=== PATIENT | female | born 1985 | race Caucasian/White ===

== ENCOUNTER 2019-09-06 14:16 | Emergency (ER) | payer OTHER, SELFPAY ==
--- NOTE | 2019-09-06 13:52 | ECG_ITS ---
Measurements Intervals [place] Rate: 77 P: 39 KS: 131 QRS: -62 QRSD: 86 T: 2 QT: 371 QTc: 421 Interpretive Statements SINUS RHYTHM LOW QRS VOLTAGE IN PRECORDIAL LEADS BORDERLINE ST-T WAVE ABNORMALITY- ANTEROLAT/INF LEADS BASELINE ARTIFACT- I, II, AVR, V4-V6 BORDERLINE ECG Electronically Signed On 09-06-2019 14:48:28 CDT by Suleman Richards D.O.
[2019-09-06 14:22] VITALS: BP 134/73; PULSE 87; RESP 16; TEMP 37.1; O2SAT 99
--- NOTE | 2019-09-06 14:54 | ED.DIZZY ---
HPI - Dizziness General Chief Complaint: Dizziness Stated Complaint: Dizzy Time Seen by Provider: 09/06/19 14:20 Source: patient Mode of arrival: ambulatory Limitations: no limitations History of Present Illness HPI Narrative: Patient is a 34-year-old female who presents to the emergency department with complaint of dizziness. Patient is G3, who is currently approximately 16 weeks gestation. She has been having issues with nausea during her . She has been taking Zofran once daily without much relief in symptoms. Patient has tried smoking marijuana to help alleviate her symptoms without any relief. Patient denies any diarrhea and has reported some constipation for which she has been taking stool softeners regularly and had been using MiraLAX and taken suppositories when her symptoms were worse. Patient is trying to drink as much water as she can, but reports a lot of heartburn and acid reflux. Patient has not been able to eat much. Patient had a syncopal episode a couple of weeks ago and today after going to the bathroom felt dizzy and near syncopal again. No syncope today. MD elicited complaint: dizziness and near syncope Description: near-syncope Associated symptoms: nausea Related Data Home Medications Medication Instructions Recorded Confirmed Tums E-X 09/06/19 docusate sodium [Stool Softener] 100 mg PO DAILY 09/06/19 ondansetron HCl [Zofran] 4 mg PO Q6H PRN 09/06/19 [id number] fum-folic [id number] pkg PO DAILY 09/06/19 [Daily ] Allergies Allergy/AdvReac Type Severity Reaction Status Date / Time morphine AdvReac Unknown Other Verified 09/06/19 14:32 Penicillins AdvReac Unknown Other Verified 09/06/19 14:32 Review of Systems Review of Systems: All systems reviewed & are unremarkable except as noted in HPI and below Constitutional: Constitutional: Denies fever(s) Respiratory: Respiratory: Denies cough and Denies dyspnea Gastrointestinal: Gastrointestinal: Reports abdominal pain, Reports constipation, Reports heartburn and Reports nausea Genitourinary: Genitourinary: Denies hematuria, Denies nocturia, Denies dysuria and Reports flank pain PMFSH Past Medical History Medical History (Updated 09/06/19 @ 18:08 by Gilda Maldonado MD) No significant past medical history Surgical History Surgical History (Updated 09/06/19 @ 14:58 by Gilda Maldonado MD) No significant past surgical history Social History Social History (Updated 09/06/19 @ 14:58 by Gilda Maldonado MD) Smoking status: Former smoker Alcohol intake: former Substance use type: marijuana Gender identity (if verbalized by the patient): Female Exam Const: General: cooperative, no acute distress and alert Nutritional Appearance: well nourished Orientation/consciousness: patient oriented x3 Limitations: no limitations HENMT: Mouth: Yes lip normal and Yes moist mucous membranes Resp: Effort & Inspection: normal respiratory effort Auscultation: clear to auscultation bilaterally Cardio: Rate: regular rate Rhythm: regular rhythm GI: GI Palp: Yes Soft to palpation and Yes Tenderness to palpation present (GI) (Mild diffuse) Auscultation: normal bowel sounds : General: Yes no CVA tenderness Skin: General skin exam: normal color Neuro: General: patient oriented x3 Cognition (Neuro): normal cognition Speech: normal speech Extrem: General: normal to inspection, full ROM and no clubbing, cyanosis or edema Psych: Mental Status: mental status grossly normal Affect: normal affect Attitude: cooperative Course Course Emergency Course: Patient given liter of IV fluid and Reglan and reports improvement in symptoms. She is eating jose crackers and drinking a clear soda. Patient is appropriate for discharge and outpatient management. Will prescribe Reglan and Pepcid for management of her acid reflux and nausea symptoms. Advised close [employer] follow-up. Patient also counseled to stop ma
[2019-09-06] MEDS: METOCLOPRAMIDE HCL INJ 10 MG/2 ML VIAL IV PUSH (15:19)
[2019-09-06] MEDS: LACTATED RINGERS 1,000 ML 999 ML IV CONT (15:19)
[2019-09-06 15:20] VITALS: BP 141/76; PULSE 89
[2019-09-06 15:22] VITALS: BP 142/99; PULSE 93
[2019-09-06 15:23] VITALS: BP 134/88; PULSE 100
[2019-09-06 15:35] LABS: Basophils Percent Auto 0.2 % (0.2-1.2); Eosinophils Absolute Auto 0.1 K/mm3 (0-0.3); Hematocrit 34.3 % (37.0-47.0); Hemoglobin 11.5 g/dL (12.0-15.0); Immature Granulocyte Absolute 0.03 K/mm3 (0.00-0.031); Immature Granulocyte Percent A 0.3 % (0-0.5); Lymphocytes Absolute Auto 1.58 K/mm3 (0.9-3.2); Lymphocytes Percent Auto 17.4 % (18.3-44.2); Mean Corpuscular HGB Conc 33.5 g/dl (32-36); Mean Corpuscular Hemoglobin 29.9 pg (26-34); Mean Corpuscular Volume 89.1 fl (80-100); Mean Platelet Volume 10.2 fl (7.4-10.4); Monocytes Absolute Auto 0.7 K/mm3 (0.1-0.6); Monocytes Percent Auto 8.1 % (2.6-8.5); Neutrophils Absolute Auto 6.6 K/mm3 (1.3-6.7); Platelet Count Result 208 k/mm3 (150-375); Red Blood Count 3.85 M/mm3 (4.2-5.4); Red Cell Distribution Width 12.9 % (11.5-14.5); White Blood Count 9.1 K/mm3 (4.5-10.0)
[2019-09-06 15:42] LABS: Add Urine Microscopic? YES; Amorphous Sediment Urine Few; Appearance Urine Cloudy (Clear); Bacteria Urine Trace /hpf; Bilirubin Urine Negative (Negative); Blood Urine Negative (Negative); Color Urine Straw (Yellow); Glucose Urine UA Negative (Negative); Ketones Urine Negative (Negative); Leukocyte Esterase Ur Negative LEU/UL (Negative); Mucus Urine Rare /lpf; Nitrate Urine Negative (Negative); Protein Urine Negative (Negative); RBC Urine 0-2 /hpf (0-2); Specific Grav Ur 1.008 (1.001-1.035); Squamous Epithelial Cell Urine Many /hpf (Few); Urobilinogen Urine Negative mg/dL (<2.0)
[2019-09-06 15:47] LABS: Alanine Aminotransferase 16 U/L (4-35); Albumin Level 4.4 g/dL (3.5-5.1); Alkaline Phosphatase 61 U/L (38-126); Aspartate Amino Transferase 22 U/L (14-36); Bilirubin,Total 0.2 mg/dL (0.2-1.3); Blood Urea Nitrogen 6 mg/dL (7-17); Calcium 9.8 mg/dL (8.4-10.2); Carbon Dioxide 24 mmol/L (22-30); Chloride 104 mmol/L (98-107); Estimated CRCL calculation 135 ml/min; Estimated Glomerular Filt Rate > 60; Glucose 102 mg/dL (65-105); Potassium 3.6 mmol/L (3.4-5.0); Sodium 137 mmol/L (137-145)
[2019-09-06 17:52] VITALS: BP 117/76; PULSE 72; RESP 16; O2SAT 98
[2019-09-06 18:28] VITALS: BP 117/70
== END 2019-09-06 18:29 | disposition home or self-care (01) ==
PROVIDERS: Emergency Provider Emergency Medicine; PCP Family Medicine
DX: O21.9 Vomiting of pregnancy, unspecified (principal); O99.282 Endocrine, nutritional and metabolic diseases complicating pregnancy, second trimester; E86.0 Dehydration; Z87.891 Personal history of nicotine dependence; Z3A.16 16 weeks gestation of pregnancy
CPT/HCPCS: 36415; 80053; 81001; 85025; 93005; 96361; 96374; 99284; J2765; J7120

== ENCOUNTER 2019-12-14 12:21 | Observation (INO) | payer OTHER, SELFPAY ==
[2019-12-14 12:47] VITALS: BP 109/66; PULSE 66
[2019-12-14 13:17] LABS: Eosinophils Percent Auto 0.4 % (0-4.4); Hematocrit 32.5 % (37.0-47.0); Hemoglobin 10.8 g/dL (12.0-15.0); Immature Granulocyte Absolute 0.03 K/mm3 (0.00-0.031); Immature Granulocyte Percent A 0.3 % (0-0.5); Lymphocytes Absolute Auto 1.37 K/mm3 (0.9-3.2); Mean Corpuscular HGB Conc 33.2 g/dl (32-36); Mean Corpuscular Volume 90.3 fl (80-100); Mean Platelet Volume 9.8 fl (7.4-10.4); Monocytes Absolute Auto 0.5 K/mm3 (0.1-0.6); Monocytes Percent Auto 5.9 % (2.6-8.5); Neutrophils Absolute Auto 7.1 K/mm3 (1.3-6.7); Neutrophils Percent Auto 78.4 % (45.5-73.1); Platelet Count Result 169 k/mm3 (150-375); Red Cell Distribution Width 13.5 % (11.5-14.5); White Blood Count 9.1 K/mm3 (4.5-10.0)
[2019-12-14 13:26] LABS: Glucose Point of Care 91 (65-105)
[2019-12-14 13:33] LABS: Alanine Aminotransferase 14 U/L (4-35); Albumin Level 3.9 g/dL (3.5-5.1); Alkaline Phosphatase 96 U/L (38-126); Anion Gap 11.8 mmol/L (7-16); Aspartate Amino Transferase 23 U/L (14-36); Bilirubin,Total 0.3 mg/dL (0.2-1.3); Blood Urea Nitrogen 6 mg/dL (7-17); Calcium 8.7 mg/dL (8.4-10.2); Carbon Dioxide 22 mmol/L (22-30); Chloride 105 mmol/L (98-107); Estimated Glomerular Filt Rate > 60; Glucose 89 mg/dL (65-105); Potassium 3.8 mmol/L (3.4-5.0); Sodium 135 mmol/L (137-145)
[2019-12-14 14:34] LABS: Add Urine Microscopic? YES; Appearance Urine Cloudy (Clear); Bacteria Urine Trace /hpf; Bilirubin Urine Negative (Negative); Blood Urine Negative (Negative); Color Urine Yellow (Yellow); Glucose Urine UA Negative (Negative); Ketones Urine Trace mg/dL (Negative); Leukocyte Esterase Ur Negative LEU/UL (Negative); Mucus Urine Rare /lpf; Nitrate Urine Negative (Negative); Protein Urine Negative (Negative); RBC Urine 0-2 /hpf (0-2); Specific Grav Ur 1.014 (1.001-1.035); Squamous Epithelial Cell Urine Many /hpf (Few); Urobilinogen Urine Negative mg/dL (<2.0); WBC Urine 0-3 /hpf
--- NOTE | 2019-12-21 07:47 | PM.OBTRLD ---
OB - Triage/Final Diagnosis Evaluation Laboratory results: Laboratory Tests 12/14/19 12/14/19 12/14/19 12:45 13:10 13:10 WBC RBC Hgb Hct MCV MCH MCHC RDW Plt Count MPV Immature Gran % (Auto) Neut % (Auto) Lymph % (Auto) [place] % (Auto) Eos % (Auto) Baso % (Auto) Lymph # (Auto) [place] # (Auto) Eos # (Auto) Baso # (Auto) Abs Immat Gran (auto) Absolute Neuts (auto) Absolute Nucleated RBC Nucleated RBC % Sodium 135 L Potassium 3.8 Chloride 105 Carbon Dioxide 22 Anion Gap 11.8 BUN 6 L Creatinine 0.50 L Estim Creat Clear Calc Not Reportable Estimated GFR > 60 Glucose 89 POC Capillary Glucose 91 Calcium 8.7 Total Bilirubin 0.3 AST 23 ALT 14 Alkaline Phosphatase 96 Total Protein 7.0 Albumin 3.9 Urine Color Yellow Urine Appearance Cloudy H Urine pH 7.0 Ur Specific [place] 1.014 Urine Protein Negative Urine Glucose (UA) Negative Urine Ketones Trace Ur Blood (Man) Negative Urine Nitrate Negative Urine Bilirubin Negative Urine Urobilinogen Negative Leukocyte Esterase Rfl Negative Urine RBC 0-2 Urine WBC 0-3 Ur Squamous Epith Cells Many H Urine Bacteria Trace Urine Mucus Rare 12/14/19 12/14/19 13:10 13:10 WBC 9.1 RBC 3.60 L Hgb 10.8 L Hct 32.5 L MCV 90.3 MCH 30.0 MCHC 33.2 RDW 13.5 Plt Count 169 MPV 9.8 Immature Gran % (Auto) 0.3 Neut % (Auto) 78.4 H Lymph % (Auto) 15.0 L [place] % (Auto) 5.9 Eos % (Auto) 0.4 Baso % (Auto) 0.0 L Lymph # (Auto) 1.37 [place] # (Auto) 0.5 Eos # (Auto) 0.0 Baso # (Auto) 0.0 Abs Immat Gran (auto) 0.03 Absolute Neuts (auto) 7.1 H Absolute Nucleated RBC 0.0 Nucleated RBC % 0.0 Sodium Potassium Chloride Carbon Dioxide Anion Gap BUN Creatinine Estim Creat Clear Calc Estimated GFR Glucose Cancelled POC Capillary Glucose Calcium Total Bilirubin AST ALT Alkaline Phosphatase Total Protein Albumin Urine Color Urine Appearance Urine pH Ur Specific [place] Urine Protein Urine Glucose (UA) Urine Ketones Ur Blood (Man) Urine Nitrate Urine Bilirubin Urine Urobilinogen Leukocyte Esterase Rfl Urine RBC Urine WBC Ur Squamous Epith Cells Urine Bacteria Urine Mucus Final Diagnosis (1) Dizziness: Code(s): R42 - Dizziness and giddiness Status: Acute
== END 2019-12-14 15:25 | disposition home or self-care (01) ==
PROVIDERS: Admitting Provider Obstetrics & Gynecology; PCP Family Medicine; Visit Provider Obstetrics & Gynecology
DX: O24.419 Gestational diabetes mellitus in pregnancy, unspecified control (principal); Z3A.30 30 weeks gestation of pregnancy
CPT/HCPCS: 36415; 59025; 80053; 81001; 85025; G0378; G0379

== ENCOUNTER 2020-01-23 12:52 | Outpatient (CLI) | payer OTHER, SELFPAY ==
--- NOTE | ~2020-01-23 | US_ITS ---
EXAMINATION: US OB BPP wo non-stress DATE: 01/23/2020 13:34 INDICATION: Gestational diabetes, third trimester TECHNIQUE: Real-time pelvic ultrasound was performed. The interpreting radiologist was not present fo r the study. COMPARISON: None. FINDINGS: There is a single living fetus in vertex presentation. The placenta is posterior. heart rate is 123 beats per minute (bpm). Biophysical profile performed by the technologist: breathing (30 sec sustained breathing in 30 minutes): 2 out of 2 movement (3 gross body movements in 30 minutes): 2 out of 2 tone (one episode of hckyeis-iybfrxamv-glwolkz limb movement): 2 out of 2 Amniotic fluid pocket (2 cm): 2 out of 2 Total score: 8 out of 8 IMPRESSION: 1. Single living fetus in vertex presentation. 2. Biophysical profile 8 out of 8. Reviewed, dictated and finalized at location B.
== END 2020-01-23 12:53 | disposition home or self-care (01) ==
PROVIDERS: PCP Family Medicine; Visit Provider Obstetrics & Gynecology
DX: O24.419 Gestational diabetes mellitus in pregnancy, unspecified control (principal)
CPT/HCPCS: 59025; 76819

== ENCOUNTER 2020-02-01 15:42 | Outpatient (CLI) | payer OTHER, SELFPAY ==
--- NOTE | ~2020-02-01 | US_ITS ---
EXAMINATION: US OB BPP wo non-stress DATE: 02/01/2020 16:31 CDT INDICATION: Gestational diabetes TECHNIQUE: Real-time transabdominal obstetric ultrasound. FINDINGS: No prior studies for comparison There is a single living fetus in vertex presentation. The placenta is fundal without placenta previ a. cardiac activity and movement is noted with a heart rate of 1:30 beats per minute. Biophysical profile: breathin of 2 movement: 2 of 2 tone: 2 of 2 Amniotic flud pocket: 2 of 2 Total score: 8 of 8 IMPRESSION: 1. Single living intrauterine in vertex presentation. 2: Total biophysical profile score of 8/8. Reviewed, dictated and finalized at location B.
== END 2020-02-01 15:43 | disposition home or self-care (01) ==
PROVIDERS: PCP Family Medicine; Visit Provider Obstetrics & Gynecology
DX: O24.419 Gestational diabetes mellitus in pregnancy, unspecified control (principal)
CPT/HCPCS: 76819

== ENCOUNTER 2020-02-05 12:10 | Outpatient (RCR) | payer OTHER, SELFPAY ==
[2020-01-23 12:22] VITALS: BP 111/72; PULSE 104
[2020-01-29 12:49] VITALS: BP 112/69; PULSE 91
[2020-02-05 12:38] VITALS: BP 111/64; PULSE 77
== END 2020-02-07 15:22 | disposition home or self-care (01) ==
LOC: ANHOBOP 12:10
PROVIDERS: PCP Family Medicine; Visit Provider Obstetrics & Gynecology
DX: O24.419 Gestational diabetes mellitus in pregnancy, unspecified control (principal); Z3A.36 36 weeks gestation of pregnancy; Z3A.37 37 weeks gestation of pregnancy; Z3A.38 38 weeks gestation of pregnancy
CPT/HCPCS: 59025

== ENCOUNTER 2020-05-29 12:57 | Outpatient (CLI) | payer OTHER, SELFPAY ==
--- NOTE | ~2020-05-29 | US_ITS ---
EXAMINATION: US pelvic complete w TV DATE: 05/29/2020 13:33 INDICATION: Excessive and frequent menstruation with irregular cycles TECHNIQUE: Multiple transabdominal and endovaginal sonographic images of the pelvis were obtained. COMPARISON: None. FINDINGS: The uterus measures 6.6 x 5.5 x 3.0 cm. The endometrial complex measures 3.4. The right ova ry measures 2.5 x 2.3 x 2.5 cm. The left ovary measures 2.3 x 2.2 x 1.6 cm. There is normal vascular flow in the ovaries. There is no free fluid in the pelvis. IMPRESSION: 1. No sonographic correlate for the patient's symptoms. Reviewed, dictated and finalized at location A. ER/GUIDE
== END 2020-05-29 12:58 | disposition home or self-care (01) ==
PROVIDERS: PCP Family Medicine; Visit Provider Obstetrics & Gynecology
DX: N92.1 Excessive and frequent menstruation with irregular cycle (principal)
CPT/HCPCS: 76830; 76856

== ENCOUNTER 2020-06-14 00:22 | Outpatient (CLI) | payer OTHER, SELFPAY ==
[2020-06-14 19:17] LABS: SARS-CoV-2 RNA PCR Negative
== END 2020-06-14 00:23 | disposition home or self-care (01) ==
LOC: ANHCOVIDDT 00:22
PROVIDERS: Family Provider Family Medicine Adolescent Medicine; PCP Family Medicine; Visit Provider Obstetrics & Gynecology
DX: Z01.812 Encounter for preprocedural laboratory examination (principal); Z20.822 Contact with and (suspected) exposure to COVID-19
CPT/HCPCS: C9803; U0003; U0005

== ENCOUNTER 2020-06-17 00:40 | Day surgery (SDC) | payer OTHER, SELFPAY ==
[2020-06-11 18:03] VITALS: BMI 29.3
[2020-06-17] VITALS (12 sets, daily range): BP systolic 108–134; BP diastolic 59–80; PULSE 57–97; RESP 12–24; TEMP 36.4–36.6; O2SAT 95–100
--- NOTE | 2020-06-17 08:28 | PM.IMHP ---
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 No significant past medical history Surgical History Surgical History H/O dilation and curettage No significant past surgical history [place] teeth removed Family History Family History Other Breast cancer Grandparent Carcinoma of colon Diabetes mellitus Social History Social History Years smoked: 15 Smoking status: Former smoker Tobacco type: cigarettes Smoking end date: 05/17/19 Alcohol intake: current Substance use: current Substance use type: marijuana Last use: 06/11/2020 Living arrangements: with family Gender identity (if verbalized by the patient): Female Sexual Orientation (if Verbalized by the Patient): Straight or Heterosexual Spiritual care concerns: No Meds Home Medications and Allergies Home Medications Medication Instructions Recorded Confirmed Type Daily pkg PO DAILY 09/06/19 History medroxyprogesterone 150 mg/mL 150 mg IM [id number] #1 ml 05/21/20 06/11/20 Rx intramuscular suspension sertraline 50 mg tablet 50 mg PO DAILY #30 tablet 06/07/20 06/11/20 Rx Allergies Allergy/AdvReac Type Severity Reaction Status Date / Time morphine AdvReac Unknown Other Verified 05/07/20 14:24 Penicillins AdvReac Unknown Other Verified 05/07/20 14:24 Exam Const: General: no acute distress, well developed, alert and awake Resp: Auscultation: clear to auscultation bilaterally Cardio: Rate: regular rate Rhythm: regular rhythm GI: Inspection: non-distended GI Palp: Yes Soft to palpation and No Tenderness to palpation present (GI) : External Female Exam: normal external appearance Bimanual exam- vagina & uterus: normal bimanual exam, uterine size normal, uterine mobility normal, non-tender and soft Bimanual Exam- Adnexa, other: normal adnexae, no masses and No adnexal tenderness Extrem: General: no pedal edema and no calf tenderness Psych: Mental Status: mental status grossly normal Assessment and Plan Assessment and plan (1) Menometrorrhagia: Code(s): N92.1 - Excessive and frequent menstruation with irregular cycle Status: Acute Assessment and Plan: She opts for D&C, hysteroscopy, and endometrial ablation and signed consent after risks, benefits, complications, and alternatives were discussed. She expressed understanding and wishes to proceed. (2) Contraceptive management: Code(s): Z30.9 - Encounter for contraceptive management, unspecified Status: Acute Assessment and Plan: She opts for laparoscopic bilateral tubal occlusion with Filshie clips and signed consent after risks, benefits, complications, and alternatives discussed. She expressed understanding and wishes to proceed.
[2020-06-17] MEDS: ACETAMINOPHEN 500 MG TABLET 1000 MG PO (10:20)
[2020-06-17] MEDS: LACTATED RINGERS 1,000 ML 30 ML IV CONT ×2 (10:31→12:51)
[2020-06-17] MEDS: KETOROLAC 15 MG/ML VIAL (*BKC) IV PUSH (10:32)
--- NOTE | 2020-06-17 10:40 | WPDANESEPPF ---
Anes - Initial Pre Proc Eval Procedure: Operation Date: 06/17/20 12:00 Proposed Procedures p Hysteroscopy Dilation and Curettage With Aleta Ablation - Oralia Renee MD s Laparoscopic Bilateral Tubal Sterilization With Filshie Clips - Oralia Renee MD Date/Time: 06/17/20 10:40 Surgeon: Oralia Renee MD Pre Op Diagnosis: Menometrorrhagia, Desires Sterilization Patient Data Age: 35 Gender: F Height: 1.7 m Weight: 89.1 kg Last Vital Signs Temp 36.6 C 06/17/20 10:13 Pulse 73 06/17/20 10:13 Resp 14 06/17/20 10:13 BP 117/74 06/17/20 10:13 Pulse Ox 99 06/17/20 10:13 Allergies Allergy/AdvReac Type Severity Reaction Status Date / Time morphine AdvReac Severe cardiac Verified 06/17/20 10:17 arrest Penicillins AdvReac Severe Other Verified 06/17/20 10:17 Home Medications Medication Instructions Recorded Confirmed Type Daily pkg PO DAILY 09/06/19 History medroxyprogesterone 150 mg/mL 150 mg IM [id number] #1 ml 05/21/20 06/17/20 Rx intramuscular suspension sertraline 50 mg tablet 50 mg PO DAILY #30 tablet 06/07/20 06/17/20 Rx Patient hx anesthesia problems: none Family hx anesthesia problems: none PMFSH Past Medical History Medical History (Updated 06/17/20 @ 10:41 by Kane Mahoney MD) Depression 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 Menometrorrhagia No significant past medical history Obesity Surgical History Surgical History H/O dilation and curettage No significant past surgical history [place] teeth removed Family History Family History Other Breast cancer Grandparent Carcinoma of colon Diabetes mellitus Social History Social History Years smoked: 15 Smoking status: Former smoker Tobacco type: cigarettes Smoking end date: 05/17/19 Alcohol intake: current Substance use: current Substance use type: marijuana Last use: 06/11/2020 Living arrangements: with family Gender identity (if verbalized by the patient): Female Sexual Orientation (if Verbalized by the Patient): Straight or Heterosexual Spiritual care concerns: No Anes - Eval Final PreProcedure Day of Procedure 06/17/20 10:40 Patient weight: obese Heart: regular rate and rhythm Lungs: clear to auscultation and normal air movement Airway: Mallampati scale class II Neurological: alert and oriented Last oral intake: >/= 8 hours ASA classification: II Emergent: no Anesthetic plan: proceed Anesthesia type and monitoring: general ETT Informed Consent: The patient's anesthetic plan and its attendant risks and benefits were discussed with the patient/family/POA. Questions were solicited and answers provided to the satisfaction of the patient/family/POA.
--- NOTE | 2020-06-17 11:31 | WPDHPUPDATE1 ---
History and Physical Update Update Date/Time: 06/17/20 11:31 History and Physical has been reviewed, including an updated exam of the patient. There are NO changes in the patient's condition. Risks, benefits, and alternatives have been discussed and questions answered. Patient agrees to proceed with procedure.
--- NOTE | 2020-06-17 11:52 | PM.PROC ---
Procedure Note - Detailed Date of procedure: 06/17/20 Pre-op diagnosis: Menometrorrhagia, Desires Sterilization Post-op diagnosis: same Procedure performed: L/S BTL with Filshie clips, D&C, hysteroscopy, endometrial ablation Description of procedure: She was taken to the operating room where general anesthesia was obtained. She was placed in the dorsal lithotomy position. Marcaine was injected infraumbilically. A 5 mm skin incision was made in the infraumbilical fold with a scalpel. 5 mm non bladed trocar was then placed with the camera in the trocar under direct visualization into the peritoneal cavity. Insufflation was begun. She was placed in Trendelenburg. An 8 mm trocar was then placed in the midline suprapubic area under direct visualization. Inspection of the pelvis revealed the findings as noted below. A Filshie clip was placed on the mid isthmic portion of the right fallopian tube, making sure the entire circumference of the tube was contained in the clip. The same procedure was performed on the left fallopian tube. All operative sites were hemostatic. Both trocars were removed. Both skin incisions were closed using 4 0 Monocryl in subcuticular fashion. Attention was then turned to the vagina. A speculum was placed, and the anterior lip of the cervix was grasped with a single-tooth tenaculum. The uterus sounded to 7.5 cm. The cervix was dilated to allow passage of the hysteroscope, which revealed normal intrauterine anatomy with both tubal ostia identified. A #8 Hegar dilator was used to measure the endocervical canal at 2.5 cm, yielding a total cavity length of 5 cm. A sharp curettage was performed. The curettings were sent for pathologic evaluation. The Aleta device was then introduced into the endometrial cavity. The cavity assessment passed on the 1st attempt. The cycle ran for 120 seconds. The Aleta device was removed. A 2nd look was taken with the hysteroscope, which revealed an excellent appearing ablation. The hysteroscope was removed. The tenaculum was removed. The right tenaculum site was bleeding slightly. Pressure was held with ring forceps until excellent hemostasis was assured. All instruments were removed from vagina. She tolerated procedures well. Sponge, lap, needle, and instrument counts were correct x2. She was taken to the recovery room in stable condition. Anesthesia: GETA Surgeon: Oralia Renee MD Estimated blood loss (mL): 10 Drains: No Packing: No Pathology: yes Complications: No immediate complications Condition: stable Disposition: PACU Findings: normal uterus, tubes, ovaries, liver, gall bladder, appendix; normal endometrial cavity with excellent appearing ablation
--- NOTE | 2020-06-17 12:45 | SUR.OPER ---
Hysteroscopy irrigation 650 ml IVNS in and 570 ml out
[2020-06-17] MEDS: fentaNYL CITRATE INJ (*CRX) 100 MCG/2 ML VIAL 25 MCG IV PUSH ×7 (13:04→13:58)
[2020-06-17] MEDS: HYDROmorphone HCL INJ (*CRX) 1 MG/ML SYR 0.25 MG IV PUSH ×8 (13:15→13:51)
[2020-06-17] MEDS: ONDANSETRON INJ 4 MG/2 ML VIAL IV PUSH ×2 (13:29→14:22)
[2020-06-17] MEDS: SCOPOLAMINE 1.5 MG PATCH TRANSDERM (15:19)
[2020-06-17] MEDS: HALOPERIDOL LACTATE 5 MG/ML VIAL 1 MG IV PUSH (15:19)
[2020-06-17] MEDS: oxyCODONE HCL (*CRX) 5 MG TAB IR PO (15:28)
== END 2020-06-17 16:30 | disposition home or self-care (01) ==
PROVIDERS: Family Provider Family Medicine Adolescent Medicine; PCP Family Medicine; Visit Provider Obstetrics & Gynecology
PROC: 0U5B8ZZ Destruction of Endometrium, Via Natural or Artificial Opening Endoscopic (ICD-10-PCS; CPT 58563; principal; 2020-06-17 12:00)
PROC: (CPT 58671; 2020-06-17 12:00)
DX: Z30.2 Encounter for sterilization (principal); F32.9 Major depressive disorder, single episode, unspecified; B97.7 Papillomavirus as the cause of diseases classified elsewhere; Z87.891 Personal history of nicotine dependence; N92.1 Excessive and frequent menstruation with irregular cycle
CPT/HCPCS: 58563; 58671; 88305; A9270; J0330; J1100; J1170; J1630; J1885; J2250; J2405; J2704; J3010; J7120

== ENCOUNTER 2022-11-18 06:13 | Day surgery (SDC) | payer OTHER, SELFPAY ==
--- NOTE | 2022-11-10 11:08 | PC.NURSE ---
Report to the Outpatient Waiting Room, entrance under the green pavilion located off [facility], at time 1130 on date 11/18/22. Planned Procedure Time: 1330. Time changes happen often and if your time is changed the preop area will call you the afternoon before. - You and your visitor will be asked to self-screen and do not enter if you have any COVID symptoms. - A mask is optional within the hospital at this time. Patients may have clear liquids (water, carbonated beverages, clear teas, apple juice) until 3 hours prior to surgery with a maximum of 20 ounces. - No food from midnight until time of surgery Take the following medications with a SIP of water the morning of surgery: PAIN PILL IF NEEDED, VENLAFAXINE DO NOT STOP ANY OF YOUR OTHER PRESCRIPTION MEDICATIONS PRIOR TO SURGERY ?EXCEPT THE FOLLOWING Medications to discontinue per physician: CELECOXIB AND IBUPROFEN Date to take last dose: PER DR. AGUILAR Please no make-up, nail czech, hairspray, perfume, deodorant, or body powder the day of surgery. No jewelry (including any body piercings) or valuables the day of surgery, leave them at home. Please take a shower or bath the night before, or the morning of, surgery with an antibacterial soap. Wear comfortable, loose fitting clothing. - Jewelry must be removed prior to entering the operating room. Rings and piercings that are not removed may be cut off. - The hospital will not accept responsibility for valuables. - Please leave all valuables, including medications, at home the day of surgery. If you are going home after surgery, a licensed stock car driver must drive you home. - NO public transportation without another adult if you receive anesthesia. - We recommend that an adult stay with you for 24 hours following discharge. - We also recommend that you do not drive, make important decision, drink alcoholic beverages, or take any drugs that were not prescribed by your health care provider for at least 24 hours after your discharge time. Follow any additional instructions given to you from your surgeon. If you or anyone in your household have experienced Covid symptoms in the past week, please notify your surgeon or the nurse liaison at the phone number below for possible testing. Telephone instructions given to PT - GOLDIE and asked if any additional questions and then verbalized understanding. Patient advised to call surgeon office or pre surgery nurse liaison [phone] if any additional questions.
[2022-11-10 11:09] VITALS: BMI 29.3
--- NOTE | 2022-11-16 13:31 | P.PNAN_ITS ---
Anes - Initial Pre Proc Eval Procedure: Operation Date: 11/18/22 13:30 Proposed Procedures p Hysteroscopy Dilation and Curettage - Ike Dumont MD Date/Time: 11/16/22 13:31 Surgeon: Ike Dumont MD Pre Op Diagnosis: thickened endometrium Patient Data Age: 37 Gender: F Height: 1.73 m Weight: 87.55 kg Allergies Allergy/AdvReac Type Severity Reaction Status Date / Time morphine AdvReac Severe cardiac Verified 11/18/22 11:25 arrest Penicillins AdvReac Severe Other Verified 11/18/22 11:25 Home Medications Medication Instructions Recorded Confirmed Type ibuprofen 600 mg tablet 600 mg PO Q6H PRN pain #60 tabs 06/17/20 11/18/22 Rx celecoxib 200 mg capsule 200 mg PO DAILY 10/20/22 11/10/22 History cyclobenzaprine 10 mg tablet 10 mg PO TID PRN Muscle Pain 10/20/22 11/10/22 History hydrocodone 5 mg-acetaminophen 325 1 tablet PO Q4-6H PRN Pain 10/20/22 11/18/22 History mg tablet venlafaxine 37.5 mg 37.5 mg PO DAILY 10/20/22 11/18/22 History capsule,extended release 24 hr acetaminophen 325 mg tablet 650 mg PO PRN PRN Pain 11/18/22 11/18/22 History (Tylenol) Patient hx anesthesia problems: none Family hx anesthesia problems: none Results Review: All pre-operative results and documents have been reviewed as part of the pre- operative evaluation. 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 Menometrorrhagia No significant past medical history Obesity Overweight (BMI 25.0-29.9) Smoker Surgical History Surgical History H/O dilation and curettage No significant past surgical history [place] teeth removed Family History Family History Other Breast cancer Grandparent Carcinoma of colon Diabetes mellitus Social History Social History Years smoked: 10 Smoking status: Current every day smoker Tobacco type: cigarettes Smoking end date: 05/17/19 Alcohol intake: current Drinks per week: 1 Substance use: current Substance use type: marijuana Last use: 06/11/2020 Living arrangements: with family Gender identity (if verbalized by the patient): Female Sexual Orientation (if Verbalized by the Patient): Straight or Heterosexual Spiritual care concerns: No Anes - Eval Final PreProcedure Day of Procedure 11/16/22 13:31 Patient weight: overweight Heart: regular rate and rhythm Lungs: clear to auscultation and normal air movement Airway: Mallampati scale class II Neurological: alert and oriented Last oral intake: >/= 8 hours ASA classification: II Emergent: no Anesthetic plan: proceed Anesthesia type and monitoring: general GIVS and LMA Results Review: All pre-operative results and documents have been reviewed as part of the pre- operative evaluation. Informed Consent: The patient's anesthetic plan and its attendant risks and benefits were discussed with the patient/family/POA. Questions were solicited and answers provided to the satisfaction of the patient/family/POA.
[2022-11-18 11:30] VITALS: BP 137/89; PULSE 87; RESP 16; TEMP 36.4; O2SAT 100
[2022-11-18] MEDS: LACTATED RINGERS 1,000 ML 30 ML IV CONT ×2 (12:04→15:39)
--- NOTE | 2022-11-18 13:20 | HP_ITS ---
This report was moved to the correct visit on 11/24/2022. Original report was signed by Jordan Dumont on 11/18/221319. History and Physical Update Update Date/Time: 11/18/22 13:19 History and Physical has been reviewed, including an updated exam of the patient. There are NO changes in the patient's condition. Risks, benefits, and alternatives have been discussed and questions answered. Patient agrees to proceed with procedure. This report may have been done utilizing a voice recognition system. Attempts have been made to correct errors. However, there may be uncorrected grammatical, spelling, and recognition errors present. Report Initialized date/time: Ike Dumont MD 11/18/221319 Electronically signed by: Ike Dumont MD 11/18/221319 [facility]
--- NOTE | 2022-11-18 13:40 | HP_ITS ---
This report was moved to the correct visit on 11/24/2022. Original report was signed by Joradn Dumont on 11/18/221339. History and Physical Update Update Date/Time: 11/18/22 13:40 History and Physical has been reviewed, including an updated exam of the patient. There are NO changes in the patient's condition. Risks, benefits, and alternatives have been discussed and questions answered. Patient agrees to proceed with procedure. This report may have been done utilizing a voice recognition system. Attempts have been made to correct errors. However, there may be uncorrected grammatical, spelling, and recognition errors present. Report Initialized date/time: Ike Dumont MD 11/18/221339 Electronically signed by: Ike Dumont MD 11/18/221339 [facility]
[2022-11-18] MEDS: LIDOCAINE HCL 1% LOCAL INJ 20 ML VIAL 10 ML INFILTRATE (13:51)
[2022-11-18] MEDS: KETOROLAC 30 MG/ML VIAL (*BKC) IV PUSH (14:08)
--- NOTE | 2022-11-18 14:32 | OP_ITS ---
This report was moved to the correct visit on 11/24/2022. Original report was signed by Jordan Dumont on 11/18/221431. ADDENDUM findings - hematometra, cervical stenosis, a nodular surface endometrial tissue. Normal vulva , vagina and external cervix. Addendum Documented By: Ike Dumont MD 11/18/221433 Addendum Signed By: <Electronically signed by Ike Dumont MD>11/18/221433 Procedure Note - Detailed Date of Procedure 11/18/22 Pre-op Diagnosis thickened endometrium Post-op Diagnosis Same Procedure Performed Hysteroscopy D&C Surgeon Ike Dumont MD Anesthesia MAC Indications abnormal uterine bleeding Description of Procedure the patient was taken the operating room. She was prepped and draped in the dorsal lithotomy position after induction of mac anesthesia. A speculum was placed in the vagina. The cervix was grasped with a tenaculum. The cervix was dilated about 1 cm. The hysteroscope was inserted. The intrauterine cavity and endocervix were evaluated. Hysteroscope was withdrawn. A medium-size curette was used to curettage all the surfaces were within the endometrial cavity. the sample was collected on Telfa and sent to pathology. The hysteroscope was reinserted and the above findings were noted. Patient tolerated the procedure well. The speculum and tenaculum were removed. She was taken recovery room in stable condition. Sponge lap and needle counts were correct x2. Estimated Blood Loss 40 Drains No Packing No Pathology Yes Complications No immediate complications Condition Stable Disposition PACU This report may have been done utilizing a voice recognition system. Attempts have been made to correct errors. However, there may be uncorrected grammatical, spelling, and recognition errors present. Report Initialized date/time: Ike Dumont MD 11/18/221431 Electronically signed by: Ike Dumont MD 11/18/221431 [facility]
[2022-11-18 14:34] VITALS: BP 111/76; PULSE 94; RESP 16; O2SAT 99
[2022-11-18] MEDS: ONDANSETRON INJ 4 MG/2 ML VIAL IV PUSH (14:40)
[2022-11-18] MEDS: fentaNYL CITRATE INJ (*CRX) 100 MCG/2 ML VIAL 25 MCG IV PUSH ×2 (14:42→14:56)
[2022-11-18 15:00] VITALS: BP 111/68; PULSE 63; RESP 16
[2022-11-18] MEDS: SCOPOLAMINE 1.5 MG PATCH TRANSDERM (15:07)
[2022-11-18] MEDS: oxyCODONE HCL (*CRX) 5 MG TAB IR PO (15:16)
[2022-11-18 15:30] VITALS: BP 111/73; PULSE 57; RESP 17
[2022-11-18 16:00] VITALS: BP 112/72; PULSE 58; RESP 16
--- NOTE | 2022-12-13 23:03 | PM.IMHP ---
H&P: HPI History of Present Illness Date/Time: 12/13/22 23:03 Chief Complaint: abnormal uterine bleeding Narrative: this patient is a 37-year-old female with thickened endometrium abnormal uterine bleeding. We have agreed for hysteroscopy D&C. She understands risks. She understands injuries may occur that result hospitalization, more surgery, severe illness. She understands risks very proceed she has completed informed consent process. She denies any nausea, vomiting, fever, chills. She denies any chest pain or shortness of breath. Review of Systems Review of Systems: All systems reviewed & are unremarkable except as noted in HPI and below Constitutional: Constitutional: Denies chills, Denies fatigue, Denies fever(s) and Denies weakness Eyes: Eyes: Denies blurry vision, Denies change in vision, Denies loss of peripheral vision, Denies loss of vision, Denies other visual disturbances and Denies eye pain ENT: Denies vertigo, Denies dizziness, Denies hearing loss, Denies mouth pain, Denies nasal obstruction, Denies neck mass and Denies neck pain Cardiovascular: Cardiovascular: Denies chest pain, Denies diaphoresis, Denies syncope, Denies leg edema and Denies dyspnea Respiratory: Respiratory: Denies chest congestion, Denies cough, Denies hemoptysis, Denies dyspnea and Denies wheezing Gastrointestinal: Gastrointestinal: Denies abdominal pain, Denies constipation, Denies diarrhea, Denies nausea and Denies vomiting Genitourinary: Genitourinary: Denies hematuria, Denies change in libido, Denies nocturia, Denies genital lesions, Denies flank pain and Denies urinary urgency Musculoskeletal: Musculoskeletal: Denies abnormal gait, Denies back pain, Denies myalgias, Denies arthralgias, Denies joint swelling, Denies muscle weakness and Denies neck pain Integumentary/Breasts: Skin/Breast: Denies swelling, Denies breast pain, Denies breast mass, Denies dry skin, Denies nipple discharge, Denies unusual bruising and Denies jaundice Neurologic: Denies Neuro-related abnormal movements, Denies Abnormal speech present, Denies abnormal gait, Denies behavioral changes, Denies confusion, Denies vertigo, Denies dizziness, Denies syncope, Denies loss of vision, Denies memory loss, Denies convulsions and Denies weakness Psychiatric: Psychiatric: Denies abnormal sleep pattern, Denies behavioral changes, Denies change in libido, Denies confusion, Denies depression, Denies anhedonia and Denies memory loss Endocrine: Endocrine: Reports no additional endocrine complaints, Denies change in libido and Denies fatigue Hematologic/Lymphatic: Hematologic/Lymphatic: Reports no additional hematologic/lymphatic complaints Allergic/Immunologic: Allergic/Immunologic: Reports no additional allergic/immunologic complaints and Denies wheezing 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 Menometrorrhagia No significant past medical history Obesity Overweight (BMI 25.0-29.9) Smoker Surgical History Surgical History H/O dilation and curettage No significant past surgical history [place] teeth removed Family History Family History Other Breast cancer Grandparent Carcinoma of colon Diabetes mellitus Social History Social History Years smoked: 10 Smoking status: Current every day smoker Tobacco type: cigarettes Smoking end date: 05/17/19 Alcohol intake: current Drinks per week: 1 Substance use: current Substance use type: marijuana Last use: 06/11/2020 Living arrangements: with family Gender identity (if verbalized by the patient): Female Sexual Orientation (if Verbalized by the Patient): Straight or Heterosexual Spiritual care concerns: No Meds Home Medications and Allergies Home Medications Medica
== END 2022-11-18 16:15 | disposition home or self-care (01) ==
PROVIDERS: PCP Family Medicine; Visit Provider Obstetrics & Gynecology
PROC: 0U5B8ZZ Destruction of Endometrium, Via Natural or Artificial Opening Endoscopic (ICD-10-PCS; CPT 58563; principal; 2022-11-18 13:30)
DX: N93.9 Abnormal uterine and vaginal bleeding, unspecified (principal); F41.9 Anxiety disorder, unspecified; F32.A Depression, unspecified; F17.210 Nicotine dependence, cigarettes, uncomplicated; F12.90 Cannabis use, unspecified, uncomplicated
CPT/HCPCS: 58558; 88305; A9270; J1885; J2250; J2405; J2704; J3010; J7120